=== PATIENT | male | born 1930 ===

== ENCOUNTER → 2018-06-05 11:34 | Outpatient (CLI) | payer OTHER ==
[~2018-06-05 11:34] MED LIST: ASPIR 8181 MG; ATENOLOL25 MG PO; DIOVAN40 MG; DIOVAN40 MG PO; FENOFIBRATE160 MG PO; PLAVIX75 MG; SYNTHROID125 MCG PO
== END | disposition home or self-care (01) ==
LOC: LAB 11:34
DX: D64.89 Other specified anemias (principal); R10.84 Generalized abdominal pain; E03.8 Other specified hypothyroidism; E78.4 Other hyperlipidemia; E11.9 Type 2 diabetes mellitus without complications; R73.09 Other abnormal glucose